=== PATIENT | male | born 1950 | race Caucasian/White ===

== ENCOUNTER 2022-05-08 16:56 | Emergency (ER) | payer OTHER ==
[~2022-05-08] VITALS: Ht 172.7 cm; Wt 126.6 kg
[2022-05-08 17:00] VITALS: BP_SYST 113
--- NOTE | 2022-05-08 17:00 | NUR ---
BROUGHT IN BY [facility], PLACED IN BED #8 AND TRIAGED. REPORT GIVEN TO TONNY
[2022-05-08] MEDS ORDERED: ONDANSETRON 4 MG ODT TAB PO ONE (17:30)
[2022-05-08 18:12] LABS: BASOPHILS % (AUTO) 0.3 % (0.0-2.0); EOSINOPHILS % (AUTO) 0.3 % (0.0-4.0); HEMATOCRIT 43.4 % (36-54); HEMOGLOBIN 14.8 g/dL (14.0-18.0); LYMPHOCYTES # (AUTO) 0.4 K/uL (1.0-5.5); LYMPHOCYTES % (AUTO) 3.6 % (20.5-51.5); MEAN CORPUSCULAR HEMOGLOBIN 29 pg (27-31); MEAN CORPUSCULAR HGB CONC 34 % (32-36); MEAN CORPUSCULAR VOLUME 85 fL (79.0-98.0); MONOCYTES # (AUTO) 0.6 K/uL (0.0-1.0); MONOCYTES % (AUTO) 5.2 % (1.7-9.3); NEUTROPHILS # (AUTO) 10.8 K/uL (1.8-7.7); NEUTROPHILS % (AUTO) 90.6 % (40.0-70.0); PLATELET COUNT (AUTO) 232 K/uL (130-430); RED BLOOD CELL COUNT(AUTO) 5.12 MIL/uL (4.2-6.2); RED CELL DISTRIBUTION WIDTH 14.8 % (9.0-15.0); WHITE BLOOD COUNT (AUTO) 11.9 K/uL (4.8-10.8)
--- NOTE | 2022-05-08 18:17 | NUR ---
PT BIBA C/O ABD PAIN PT STATES HE HAD EXPLOSIVE DIARRHEA PT STATES HE MAY HAVE GOTTEN FOOD POISONING. VSS, NAD, EVEN UNLABORED RESPIRATIONS. WILL CONT TO MONITOR.
[2022-05-08 18:29] LABS: ANION GAP 7 (5-15); CALCIUM 8.4 mg/dL (8.4-11.0); CHLORIDE 100 mmol/L (98-107); CREATININE 1.29 mg/dL (0.55-1.30); GLUCOSE 139 mg/dL (70-99); UREA NITROGEN, BLOOD 26 mg/dL (8-21)
[2022-05-08 18:36] LABS: ALANINE AMINOTRANSFERASE 70 U/L (12-78); ALBUMIN 3.2 g/dL (3.4-4.8); AMYLASE 27 U/L (0-100); ASPARTATE AMINOTRANSFERASE 35 U/L (10-37); C-REACTIVE PROTEIN QUANT 3.3 mg/dL (0-0.5); LIPASE 75 U/L (73-393); TOTAL BILIRUBIN 0.6 mg/dL (0.0-1.0)
[2022-05-08 18:37] LABS: GFR AFRICAN AMERICAN 71 mL/min (>90)
[2022-05-08 18:51] LABS: ACETONE, SERUM NEGATIVE (NEGATIVE)
[2022-05-08] MEDS ORDERED: ONDA-8 TL (19:12)
[2022-05-08] MEDS ORDERED: IBUP-1971 PO (19:12)
[2022-05-08] MEDS ORDERED: NACL 0.9% 1,000 ML IV ONE (19:30)
--- NOTE | 2022-05-08 19:31 | NUR ---
PT RESTING IN BED A/A/OX4; HERE FOR ABD PAIN AND N/V/D; ON CONTINUOUS INDUSTRIAL ELECTRICAL ENGINEER; VSS WCTM
[2022-05-08 20:13] VITALS: BP_SYST 108
== END 2022-05-08 20:13 | disposition home or self-care (01) ==
LOC: SED 16:56
DX: R10.12 Left upper quadrant pain (principal); I10 Essential (primary) hypertension; E78.5 Hyperlipidemia, unspecified; Z88.0 Allergy status to penicillin; Z79.899 Other long term (current) drug therapy
CPT/HCPCS: 99285; 74176; 96360; 71045; 80053; 82009; 82150; 83690; 85025; 86140; 84484; 36415; 76376; 83605; Q0162; J7030

== ENCOUNTER 2022-09-13 13:04 | Emergency (ER) | payer OTHER ==
[~2022-09-13] VITALS: Ht 172.7 cm; Wt 126.1 kg
[~2022-09-13 13:04] MED LIST: IBUP-1971 PO; ONDA-8 TL
[2022-09-13 13:10] VITALS: BP_SYST 88
--- NOTE | 2022-09-13 13:16 | NUR ---
ESCORTED TO ROOM 3. MONITOR PLACED. COMFORT MEASURES AND SUPPORTIVE CARE INITIATED. PREP FOR ERMD EVAL.
--- NOTE | 2022-09-13 13:20 | NUR ---
RECEIVED PT FROM YFN ALEXANDRE. PT BIBS FOR C/O DIFFICULTY BREATHING, GENERALIZED WEAKNESS. PT WAS DIAGNOSED A FEW WEEKS AGO FOR COVID. PT HAS SOB, O2 SAT 95%. ON R/A. DENIES N/V/D/C. DISTAL PULSES NORMAL. DENIES PAIN.
--- NOTE | 2022-09-13 13:25 | NUR ---
DR. KEYES AT BEDSIDE TO ASSESS PT.
--- NOTE | 2022-09-13 13:44 | NUR ---
PT RECEIVING CXR AT THIS TIME.
[2022-09-13] MEDS ORDERED: IBUPROFEN 800 MG TABLET PO ONE (14:00)
[2022-09-13] MEDS ORDERED: guaiFENesin/DEXTROMETHORPHAN 10 ML UDC PO ONE (14:30)
[2022-09-13] MEDS ORDERED: OSELTAMIVIR PHOSPHATE 75 MG CAPSULE PO ONE (15:00)
--- NOTE | 2022-09-13 15:05 | NUR ---
PT POSITIVE FOR INFLUENZA A, PT AND DR. CARRERA MADE AWARE.
[2022-09-13 15:14] LABS: BASOPHILS # (AUTO) 0.1 K/uL (0.0-0.2); BASOPHILS % (AUTO) 0.3 % (0.0-2.0); EOSINOPHILS # (AUTO) 0.2 K/uL (0.0-0.4); EOSINOPHILS % (AUTO) 1.3 % (0.0-4.0); HEMATOCRIT 41.3 % (36-54); HEMOGLOBIN 13.7 g/dL (14.0-18.0); LYMPHOCYTES % (AUTO) 12.8 % (20.5-51.5); MEAN CORPUSCULAR HEMOGLOBIN 28 pg (27-31); MEAN CORPUSCULAR HGB CONC 33 % (32-36); MEAN CORPUSCULAR VOLUME 86 fL (79.0-98.0); MONOCYTES # (AUTO) 1.2 K/uL (0.0-1.0); MONOCYTES % (AUTO) 7.7 % (1.7-9.3); NEUTROPHILS # (AUTO) 12.3 K/uL (1.8-7.7); NEUTROPHILS % (AUTO) 77.9 % (40.0-70.0); PLATELET COUNT (AUTO) 243 K/uL (130-430); RED BLOOD CELL COUNT(AUTO) 4.83 MIL/uL (4.2-6.2); RED CELL DISTRIBUTION WIDTH 14.7 % (9.0-15.0); WHITE BLOOD COUNT (AUTO) 15.8 K/uL (4.8-10.8)
[2022-09-13] MEDS ORDERED: OSELTAMIVIR PHOSPHATE 75 MG CAPSULE ONE (15:16)
[2022-09-13 15:29] LABS: ALANINE AMINOTRANSFERASE 54 U/L (12-78); ALBUMIN 3.3 g/dL (3.4-4.8); ANION GAP 7 (5-15); ASPARTATE AMINOTRANSFERASE 43 U/L (10-37); CALCIUM 8.6 mg/dL (8.4-11.0); CHLORIDE 99 mmol/L (98-107); CREATININE 0.89 mg/dL (0.55-1.30); GFR AFRICAN AMERICAN 109 mL/min (>90); GLUCOSE 117 mg/dL (70-99); TOTAL BILIRUBIN 0.8 mg/dL (0.0-1.0); UREA NITROGEN, BLOOD 13 mg/dL (8-21)
[2022-09-13 15:32] LABS: INR 1.1 (0.80-1.20)
[2022-09-13] MEDS ORDERED: BENZ100C92 PO (16:02)
[2022-09-13] MEDS ORDERED: IBUP-1971 PO (16:02)
[2022-09-13] MEDS ORDERED: OSEL75CA PO (16:02)
[2022-09-13 16:14] VITALS: BP_SYST 155
--- NOTE | 2022-09-13 16:17 | NUR ---
Patient given written and verbal discharge instructions and verbalizes understanding. ER MD discussed with patient the results and treatment provided. Patient in stable condition. ID arm band removed. IV catheter removed intact and dressing applied, no active bleeding. Rx of BENZONATATE, MOTRIN, TAMIFLU given. Patient educated on pain management and to follow up with PMD. Pain Scale 0/10. Opportunity for questions provided and answered. Medication side effect fact sheet provided.
== END 2022-09-13 16:17 | disposition home or self-care (01) ==
LOC: SED 13:04
DX: J10.1 Influenza due to other identified influenza virus with other respiratory manifestations (principal); B34.9 Viral infection, unspecified; R05.9 Cough, unspecified; R06.02 Shortness of breath; E78.5 Hyperlipidemia, unspecified; E11.9 Type 2 diabetes mellitus without complications; I10 Essential (primary) hypertension; Z88.0 Allergy status to penicillin; Z79.899 Other long term (current) drug therapy; Z20.822 Contact with and (suspected) exposure to COVID-19
CPT/HCPCS: 80053; 83880; 85025; 85379; 85610; 85730; 84484; 36415; 93005; 71045; 99285; 83605; 87804 ×2; 87426; G9035

== ENCOUNTER 2022-10-03 16:27 | Inpatient (IN) | payer OTHER ==
[~2022-10-03] VITALS: Ht 172.7 cm; Wt 124.7 kg
[~2022-10-03 16:27] MED LIST changes: +BENZ100C92 PO; +OSEL75CA PO
[2022-10-03 17:08] VITALS: BP_SYST 131
[2022-10-03 17:10] LABS: BASOPHILS # (AUTO) 0.1 K/uL (0.0-0.2); BASOPHILS % (AUTO) 0.6 % (0.0-2.0); EOSINOPHILS # (AUTO) 0.2 K/uL (0.0-0.4); EOSINOPHILS % (AUTO) 1.7 % (0.0-4.0); HEMATOCRIT 44.4 % (36-54); HEMOGLOBIN 14.4 g/dL (14.0-18.0); LYMPHOCYTES # (AUTO) 0.8 K/uL (1.0-5.5); LYMPHOCYTES % (AUTO) 7.1 % (20.5-51.5); MEAN CORPUSCULAR HEMOGLOBIN 28 pg (27-31); MEAN CORPUSCULAR HGB CONC 33 % (32-36); MEAN CORPUSCULAR VOLUME 86 fL (79.0-98.0); MONOCYTES # (AUTO) 0.5 K/uL (0.0-1.0); MONOCYTES % (AUTO) 4.9 % (1.7-9.3); NEUTROPHILS # (AUTO) 9.4 K/uL (1.8-7.7); NEUTROPHILS % (AUTO) 85.7 % (40.0-70.0); PLATELET COUNT (AUTO) 259 K/uL (130-430); WHITE BLOOD COUNT (AUTO) 10.9 K/uL (4.8-10.8)
[2022-10-03 17:19] LABS: CALCIUM 8.2 mg/dL (8.4-11.0); CREATININE 0.85 mg/dL (0.55-1.30)
[2022-10-03 17:24] LABS: ALBUMIN 3.4 g/dL (3.4-4.8); TOTAL BILIRUBIN 0.7 mg/dL (0.0-1.0)
--- NOTE | 2022-10-03 17:30 | NUR ---
PATIENT BIB C/O ABD PAIN 12/14 & RIB PAIN & SOB WITH EXERTION SINCE YESTERDAY. DIARRHEA THIS AM. PATIENT STATES HE HAD COVID TWICE BACK TO [facility] IN MAY & HAS HAD BREATHING ISSUES EVER SINCE. HAS BEEN TO URGENT CARE & SENT TO [facility] ED SEVERAL TIMES RECENTLY FOR SIMILAR ISSUES WITH ACCORDING TO PATIENT & . MED HX HTN, BORDERLINE DM. NKA. VSS.
--- NOTE | 2022-10-03 17:58 | NUR ---
DOCTOR AT BEDSIDE
--- NOTE | 2022-10-03 18:33 | NUR ---
US COLLECTED AND TAKEN TO LAB
[2022-10-03 18:52] LABS: BILIRUBIN,URINE NEGATIVE (NEGATIVE); CLARITY/URINE CLEAR (CLEAR); COLOR,URINE YELLOW (YELLOW); GLUCOSE,URINE NEGATIVE (NEGATIVE); KETONES,URINE NEGATIVE (NEGATIVE); LEUKOCYTE ESTERASE ,URINE NEGATIVE (NEGATIVE); NITRITE, URINE NEGATIVE (NEGATIVE); PH,URINE 5.5 (5.0-8.0); PROTEIN URINE NEGATIVE (NEGATIVE); UROBILINOGEN,URINE 0.2 (0.2-1.0)
[2022-10-03 18:53] LABS: BLOOD, URINE TRACE (NEGATIVE)
--- NOTE | 2022-10-03 19:05 | NUR ---
RT AT BEDSIDE DRAWING ABG SAMPLES.
[2022-10-03 19:09] LABS: BACTERIA,URINE None Seen /HPF (None Seen); MUCUS,URINE None Seen /LPF (None Seen); RBC,URINE NONE SEEN /HPF (0-3); WBC,URINE 0-3 /HPF (0-3)
[2022-10-03] MEDS ORDERED: MORPHINE 4 MG INJ. 4 MG/ML VIAL IVP ONE (20:15)
[2022-10-03] MEDS ORDERED: NACL 0.9% 1,000 ML IV ONE (23:15)
--- NOTE | 2022-10-03 23:16 | NUR ---
Admit bed requested Patient will be admitted to care of . Admitted to MEDSURG unit. Diagnosis ABDOMINAL PAIN Inpatient (Yes or No) Y Observation (Yes or No) N Orientation concerns or request close to nursing station (Yes or No) N Covid Status N/A On vent or bipap N Isolation requirements N Needs a sitter N From Home (Yes or if No enter name of facility) HOME Requires Dialysis (Yes or No) N Med Rec Completed (Yes of No) YES
--- NOTE | 2022-10-04 00:33 | NUR ---
Patient will be admitted to care of RN. Admitted to MED SURG unit. Will go to room 111A. Belongings list completed. Complete and up to date summary report printed. SBAR report to be given at bedside with opportunity for questions.
[2022-10-04 00:50] VITALS: BP_SYST 124
--- NOTE | 2022-10-04 07:53 | NUR ---
OPENING NOTES: PATIENT IN BED WITH EYES CLOSED. RESPONDED TO NAME. BREATHING IS EVEN AND UNLABORED ON 2L NC 98%. NO S/S OF DISTRESS OR PAIN NOTED. VITAL SIGNS STABLE. ALL NEEDS MET AT THIS TIME, SAFETY CHECKS MADE AND CALL LIGHT WITHIN REACH.
[2022-10-04 08:00] VITALS: BP_SYST 119
[2022-10-04 12:00] VITALS: BP_SYST 125
--- NOTE | 2022-10-04 15:09 | NUR ---
Cally MADRID AT BEDSIDE WITH PATIENT AND FAMILY.
[2022-10-04 16:00] VITALS: BP_SYST 119
--- NOTE | 2022-10-04 16:30 | NUR ---
PATIENT IN BED WATCHING TV. APPLIED SCD'S TO PATIENT LEGS. EDUCATED PATIENT ON USE. VERBALIZED UNDERSTANDING. ALL NEEDS MET AT THIS TIME, SAFETY CHECKS MADE AND CALL LIGHT WITHIN REACH.
--- NOTE | 2022-10-04 18:26 | NUR ---
CLOSING NOTES: PATIENT IN BED TALKING WITH FAMILY AT BEDSIDE AND EATING DINNER. NO S/S OF DISTRESS OR PAIN REPORTED. BREATHING IS EVEN AND UNLABORED ON RA 97%. ALL NEEDS MET AT THIS TIME, SAFETY CHECKS MADE AND CALL LIGHT WITHIN REACH. WILL ENDORSE TO CLINICAL EDUCATION SPECIALIST NURSE.
--- NOTE | 2022-10-04 18:34 | NUR ---
CONSULTATION PAGED/CALLED Reason for Consultation: abdominal pain Person Who was Notified: xiomara Consulting Physician: karo demarco (dr sidhu director rehabilitation program) Ordering Physician: rosa duran
[2022-10-04] MEDS ORDERED: GLUCOSE (DEXTROSE) ORAL GEL -Adults PO PRN (19:15)
[2022-10-04] MEDS ORDERED: DEXTROSE 50% JECT 50 ML DISP.SYRIN IVP PRN (19:15)
[2022-10-04] MEDS ORDERED: INSULIN LISPRO SLIDING SCALE 100 UNITS/ML, 3 ML VIAL (humaLOG) SUBCUT PRN (19:15)
[2022-10-04] MEDS ORDERED: D5W 1,000 ML IV PRN (19:15)
[2022-10-04 20:00] VITALS: BP_SYST 109
--- NOTE | 2022-10-04 20:00 | NUR ---
Opening notes Pt AAOx4, VSS, no c/o pain or discomfort. Family at bedside. IVF infusing R. AC 20G clear and patent. Call light within reach. Bed low, locked, siderails up x2. To monitor.
[2022-10-04] MEDS: MONTELUKAST 10 MG TABLET PO SCH (20:45)
[2022-10-04] MEDS: PANTOPRAZOLE SODIUM 40 MG/VIAL (PROTONIX) IVP SCH (20:45)
[2022-10-04] MEDS: TAMSULOSIN HCL 0.4 MG CAP PO SCH (20:45)
[2022-10-04] MEDS: ATORVASTATIN 20 MG TABLET PO SCH (20:45)
[2022-10-04] MEDS: NACL 0.9% 1,000 ML IV SCH (20:46)
[2022-10-04 23:58] LABS: LIPASE 91 U/L (73-393)
[2022-10-05 00:30] VITALS: BP_SYST 110
[2022-10-05] MEDS: NACL 0.9% 1,000 ML IV SCH ×2 (05:15→14:25)
--- NOTE | 2022-10-05 05:54 | NUR ---
Closing notes Pt asleep, easily awakens, no s/s distress. BS checked 113. IVF infusing at ordered rate R. AC20G clear and patent. Pt denies N/V, abd pain. Pt on clear liquid diet. Call light within reach. Bed low, locked, siderails up x2. To endorse to AM nurse.
[2022-10-05] MEDS: LEVOTHYROXINE SODIUM 0.05 MG TABLET PO SCH (06:23)
[2022-10-05 06:50] LABS: BASOPHILS % (AUTO) 0.4 % (0.0-2.0); EOSINOPHILS # (AUTO) 0.4 K/uL (0.0-0.4); EOSINOPHILS % (AUTO) 5.2 % (0.0-4.0); HEMATOCRIT 42.1 % (36-54); HEMOGLOBIN 13.6 g/dL (14.0-18.0); LYMPHOCYTES # (AUTO) 1.3 K/uL (1.0-5.5); LYMPHOCYTES % (AUTO) 17.7 % (20.5-51.5); MEAN CORPUSCULAR HEMOGLOBIN 28 pg (27-31); MEAN CORPUSCULAR HGB CONC 32 % (32-36); MEAN CORPUSCULAR VOLUME 86 fL (79.0-98.0); MONOCYTES # (AUTO) 0.8 K/uL (0.0-1.0); MONOCYTES % (AUTO) 10.6 % (1.7-9.3); NEUTROPHILS # (AUTO) 4.9 K/uL (1.8-7.7); NEUTROPHILS % (AUTO) 66.1 % (40.0-70.0); PLATELET COUNT (AUTO) 223 K/uL (130-430); RED BLOOD CELL COUNT(AUTO) 4.87 MIL/uL (4.2-6.2); RED CELL DISTRIBUTION WIDTH 15.2 % (9.0-15.0); WHITE BLOOD COUNT (AUTO) 7.4 K/uL (4.8-10.8)
--- NOTE | 2022-10-05 06:58 | NUR ---
CONSULTATION PAGED/CALLED Reason for Consultation: [] ABDOMINAL PAIN Person Who was Notified: [] LEFT A VOICE MESSAGE ON HIS CELL AND PAGED HIM DIRECTLY Consulting Physician: [] DR Randal LIMON Timber Harvester Operator Specialty: [] GEN SURGEON Ordering Physician: [] DR URIBE N
[2022-10-05 07:20] LABS: ALBUMIN 2.9 g/dL (3.4-4.8); CREATININE 0.79 mg/dL (0.55-1.30); PHOSPHORUS 3.6 mg/dL (2.7-4.5); TOTAL BILIRUBIN 0.5 mg/dL (0.0-1.0)
[2022-10-05 08:00] VITALS: BP_SYST 133
--- NOTE | 2022-10-05 08:17 | NUR ---
OPENING NOTES: PATIENT IN BED WITH EYES CLOSED. RESPONDED TO NAME. NO S/S OF DISTRESS OR PAIN REPORTED. BREATHING IS EVEN AND UNLABORED ON 2L NC 98%. SAFETY CHECKS MADE AND CALL LIGHT WITHIN REACH.
[2022-10-05] MEDS: MELOXICAM 7.5 MG TABLET PO SCH (08:54)
[2022-10-05] MEDS: HYDROCHLOROTHIAZIDE 12.5 MG CAPSULE (HCTZ) PO SCH (08:54)
[2022-10-05] MEDS: PIOGLITAZONE HCL 15 MG TABLET PO SCH (08:55)
[2022-10-05] MEDS: METOPROLOL SUCCINATE 50 MG TAB.SR.24H (TOPROL XL) PO SCH (08:55)
[2022-10-05] MEDS: LOSARTAN POTASSIUM 50 MG TABLET (COZAAR) PO SCH (08:55)
[2022-10-05] MEDS ORDERED: IRBESARTAN 150 MG TABLET (AVAPRO) PO SCH (09:00)
[2022-10-05 12:53] VITALS: BP_SYST 128
--- NOTE | 2022-10-05 14:36 | NUR ---
patient in bed talking with family. no s/s of distress or pain reported. breathing is even and unlabored on 2l nc. iv was beeping. flushed and repositioned iv to avoid high pressure and set fluids to run as prescribed. safety checks made and call light within reach.
--- NOTE | 2022-10-05 15:41 | NUR ---
Dietitian Recommendations * Continue Soft (low-fiber/bland) diet * RD provided low-fiber and wt management MNT LP, MS, RD Please refer to Nutrition Assessment for details. Addendum: 10/05/22 at [address] Amended: Links added.
[2022-10-05 16:00] VITALS: BP_SYST 130
--- NOTE | 2022-10-05 16:06 | NUR ---
CONSULTATION PAGED/CALLED Reason for Consultation: [] INTOLERABLE ACTIVITY Person Who was Notified: [] TREVOR Consulting Physician: [] DR MCKEON Nurse Clinical Specialty: [] PULMO Ordering Physician: [] DR Cally URIBE
[2022-10-05] MEDS ORDERED: POLYETHYLENE GLYCOL 3350, 17 GM/ POWD.PACK PO ONE (17:15)
[2022-10-05 20:00] VITALS: BP_SYST 110
[2022-10-05] MEDS: ATORVASTATIN 20 MG TABLET PO SCH (20:54)
[2022-10-05] MEDS: TAMSULOSIN HCL 0.4 MG CAP PO SCH (20:54)
[2022-10-05] MEDS: PANTOPRAZOLE SODIUM 40 MG/VIAL (PROTONIX) IVP SCH (20:54)
[2022-10-05] MEDS: MONTELUKAST 10 MG TABLET PO SCH (20:55)
[2022-10-06] VITALS: BP_SYST 129
[2022-10-06] MEDS: NACL 0.9% 1,000 ML IV SCH ×2 (04:33→10:18)
[2022-10-06] MEDS: LEVOTHYROXINE SODIUM 0.05 MG TABLET PO SCH (06:20)
[2022-10-06 07:20] VITALS: BP_SYST 127
--- NOTE | 2022-10-06 07:20 | NUR ---
OPENING NOTES PATIENT IS RESTING, BREATHING UNLABORED ON RA. NO PAIN, NO DISTRESS, NO SOB REPORTED. ALL NEED MET AT THIS TIME. SAFETY PRECAUTION IN PLACE. ENCOURAGE PATIENT TO USE CALL LIGHT. CALL LIGHT WITHIN REACH. BED ALARM ON. BED LOCKED IN LOWEST POSITION. WILL CONTINUE WITH PLAN OF CARE.
[2022-10-06 09:00] VITALS: BP_SYST 127
[2022-10-06] MEDS: METOPROLOL SUCCINATE 50 MG TAB.SR.24H (TOPROL XL) PO SCH (10:06)
[2022-10-06] MEDS: HYDROCHLOROTHIAZIDE 12.5 MG CAPSULE (HCTZ) PO SCH (10:07)
[2022-10-06] MEDS: MELOXICAM 7.5 MG TABLET PO SCH (10:07)
[2022-10-06] MEDS: PIOGLITAZONE HCL 15 MG TABLET PO SCH (10:07)
[2022-10-06] MEDS: LOSARTAN POTASSIUM 50 MG TABLET (COZAAR) PO SCH (10:08)
[2022-10-06 11:38] VITALS: BP_SYST 131
--- NOTE | 2022-10-06 12:00 | NUR ---
ROUNDING NOTES PATIENT IS RESTING, NO PAIN, NO DISTRESS, NO SOB NOTED. ALL NEED MET AT THIS TIME. SAFETY PRECAUTION IN PLACE. CALL LIGHT WITHIN REACH. BED ALARM ON. BED LOCKED IN LOWEST POSITION. WILL CONTINUE WITH PLAN OF CARE.
[2022-10-06] MEDS ORDERED: TAMS0.4C96 PO (12:30)
[2022-10-06] MEDS ORDERED: PIOG15TA8 PO (12:30)
[2022-10-06] MEDS ORDERED: METO-542 PO (12:30)
[2022-10-06] MEDS ORDERED: LOSA50TA3 PO (12:30)
[2022-10-06] MEDS ORDERED: SYN50 PO (12:30)
[2022-10-06] MEDS ORDERED: MONT-40 PO (12:30)
[2022-10-06] MEDS ORDERED: HYDR12.585 PO (12:30)
[2022-10-06] MEDS ORDERED: PRO40 PO (12:30)
[2022-10-06 17:37] VITALS: BP_SYST 132
--- NOTE | 2022-10-06 19:50 | NUR ---
RECEIVED PT IN BED, AOX4, EVEN AND UNLABORED BREATHING, PT DENIED SOB, CP, N/V, OR ANY PAIN ATT, AT BEDSIDE PT STATED HE WAS READY TO BE D/C'D. CHECKED PT V/S, STABLE, IV ACCESS REMOVED AND PT TOLERATED WELL, PRESSURE DSG APPLIED, TAKE HOME MEDICATION EDUCATION GIVEN, INSTRUCTED PT TO NIB FINISHER MED FROM HIS PHARMACY, F/U WITH PCP IN A WEEK TIME, PT STATED APPT HAS ALREADY GIVEN SCHEDULED FOR 10/09/22, ALSO INSTRUCTED PT TO F/U WITH DR MALDONADO AND DR YAO FOR GI, PULMONARY AND CARDIOLOGY PER D/C INSTRUCTION, CONTACT PROVIDED TO PT AND , INVENTORY CONDUCTED, PT WAS WHEELED OUT OF FACILITY IN THE COMPANY OF CHIEF LOCK OPERATOR AND AROUND 20:55, D/C PAPERWORK PROVIDED TO PT.
--- NOTE | 2022-10-06 20:03 | NUR ---
ClOSING NOTES PATIENT IS RESTING, NO PAIN, NO DISTRESS, NO SOB NOTED. ALL NEED MET AT THIS TIME. SAFETY PRECAUTION IN PLACE. CALL LIGHT WITHIN REACH. BED ALARM ON. BED LOCKED IN LOWEST POSITION. WILL ENDORSE TO SNIPPER NURSE.
[2022-10-06 20:16] VITALS: BP_SYST 122
== END 2022-10-06 20:50 | disposition home health service (06) | DRG 392 ==
LOC: SED 16:27 → SMU 23:11
PROVIDERS: ADMIT Student in an Organized Health Care Education/Training Program; ATTEND Student in an Organized Health Care Education/Training Program
DX: A08.4 Viral intestinal infection, unspecified (principal); E66.2 Morbid (severe) obesity with alveolar hypoventilation; E87.1 Hypo-osmolality and hyponatremia; Z68.41 Body mass index [BMI] 40.0-44.9, adult; E78.5 Hyperlipidemia, unspecified; R74.01 Elevation of levels of liver transaminase levels; D72.829 Elevated white blood cell count, unspecified; E88.09 Other disorders of plasma-protein metabolism, not elsewhere classified; E11.9 Type 2 diabetes mellitus without complications; J44.9 Chronic obstructive pulmonary disease, unspecified; E83.52 Hypercalcemia; Z88.0 Allergy status to penicillin; Z91.199 Patient's noncompliance with other medical treatment and regimen due to unspecified reason
CPT/HCPCS: 36415; 36600; 71045; 71250-TC; 76376; 80053; 81000; 82803; 83605; 83690; 83735; 84100; 84484; 85025; 96374; 99285; C9113; J2270; J7030